=== PATIENT | female | born 1940 | race Caucasian/White ===

== ENCOUNTER → 2022-10-09 | Outpatient (CLI) | payer MEDICARE | LOC: COL.RAD 12:19 | DX: E86.9 Volume depletion, unspecified (principal); I25.9 Chronic ischemic heart disease, unspecified; M81.0 Age-related osteoporosis without current pathological fracture; M35.3 Polymyalgia rheumatica; M25.50 Pain in unspecified joint; M15.4 Erosive (osteo)arthritis | CPT/HCPCS: A9575 ==